=== PATIENT | male | born 1985 | race Caucasian/White ===

== ENCOUNTER → 2016-06-13 | Outpatient (REF) | payer SELFPAY ==
[2016-06-13 15:56] LABS: NON PROGRESSIVE MOTILITY (c) 6 %; PROGRESSIVE MOTILITY (a) 48 % (>=32); TOTAL MOTILITY 54 % (>=40)
[2016-06-13 15:57] LABS: % NORMAL FORMS 16 % (>=4); IMMOTILITY 46 %; SPERM# 346.7 M/Ejac (33-46); TOTAL FUNCTIONAL 54.4 M/Ejac.; TOTAL PROGRESSIVE SPERM 166.1 M/Ejac.
== END ==
LOC: M LAB REF 14:21
PROVIDERS: ATTEND Specialist
DX: N46.9 Male infertility, unspecified (principal)